=== PATIENT | female | born 1950 | race Caucasian/White ===

== ENCOUNTER → 2018-08-31 | Outpatient (CLI) | payer OTHER ==
[~2018-08-31] MED LIST: Bactrim PO; CALCIUM 500 +1 EAC5 PO; CELEXA 20 MG TA20 M1 PO; CENTRUM SILVER1 EAC1 PO; COD LIVER OIL1 EAC1 PO; CRANBERRY PO; FOSAMAX 35 MG35 M1 PO; HYDROXYZINE HCL25 M2 PO; N ACETYL CYSTEINE PO; NEXIUM40 MG PO; NIFEDICAL XL30 MG PO; NIFEREX PO; ONDANSETRON ODT4 MG PO; PREDNISONE PO; SEREVENT DISKU50 MCG IH; VITAMIN D 5050000 I1 PO; VITAMIN E 400I400 I1 PO; [UNRECOGNIZED DRUG - OTHER] PO; [UNRECOGNIZED DRUG - OTHER] SQ
== END ==
LOC: RAD 01:13
DX: Z12.31 Encounter for screening mammogram for malignant neoplasm of breast (principal)

== ENCOUNTER → 2019-09-14 | Outpatient (CLI) | payer OTHER, BC | LOC: RAD 09:05 | DX: Z12.31 Encounter for screening mammogram for malignant neoplasm of breast (principal) ==

== ENCOUNTER → 2020-08-16 | Outpatient (CLI) | payer OTHER, BC | LOC: RAD 12:08 | PROVIDERS: ATTEND Internal Medicine | DX: J84.10 Pulmonary fibrosis, unspecified (principal); J84.9 Interstitial pulmonary disease, unspecified ==

== ENCOUNTER → 2020-09-20 | Outpatient (CLI) | payer OTHER, BC | LOC: LAB 09:40 | PROVIDERS: ATTEND Internal Medicine | DX: R05 Cough (principal); R06.02 Shortness of breath; Z20.828 Contact with and (suspected) exposure to other viral communicable diseases ==

== ENCOUNTER → 2020-10-30 | Outpatient (CLI) | payer OTHER, BC ==
[2020-10-30 17:10] LABS: ABSOLUTE NEUTROPHILS 9.3 thou/uL (1.4-8.2); BASOPHILS 0.4 % (0.0-2.0); HEMATOCRIT 37.8 % (37.0-47.0); LYMPHOCYTES 5.9 % (24.0-44.0); MCH 25.3 pg (26.0-34.0); MCHC 31.8 g/dL (28.0-37.0); MCV 79.6 fL (80.0-100.0); MONOCYTES 6.1 % (1.0-8.0); PLATELET COUNT 345 thou/uL (150-400); POLYS 86.6 % (36.0-66.0); RBC 4.75 mil/uL (4.20-5.00); WBC 10.7 thou/uL (4.0-11.0)
[2020-10-30 17:26] LABS: ALBUMIN 3.8 g/dL (3.4-5.0); CALCIUM 9.8 mg/dL (8.5-10.1); CREATININE 0.8 mg/dL (0.6-1.0); POTASSIUM 4.2 mmol/L (3.5-5.1); TOTAL BILIRUBIN 0.3 mg/dL (0.2-1.0); TOTAL PROTEIN 7.1 g/dL (6.4-8.2)
== END ==
LOC: CAT 16:04
PROVIDERS: ATTEND Internal Medicine
DX: J84.10 Pulmonary fibrosis, unspecified (principal); J84.9 Interstitial pulmonary disease, unspecified; M34.9 Systemic sclerosis, unspecified; K44.9 Diaphragmatic hernia without obstruction or gangrene

== ENCOUNTER → 2020-10-31 | Outpatient (CLI) | payer OTHER, BC ==
--- NOTE | 2020-10-31 14:55 | 2DMMODE ---
[facility] [place] [address] 2 D/M-MODE ECHOCARDIOGRAM Name: CAR REDDY Room #: REG LENIN Jakub.#: [id number] Admission: 10/31/20 Attend Phys: Edgar Herzog MD Discharge: Date of : 52 Report #: [id number] THIS REPORT FOR: cc: Karlo Matias MD, Mark S. MD Lammoglia, Francisco J. MD ~ APPROVED REPORT Study performed: 10/31/2020 13:11:18 EXAM: Comprehensive 2D, Doppler, and color-flow Echocardiogram Patient Location: Out-Patient Room #: 2 Status: routine BSA: 1.52 HR: 98 bpm BP: 132/64 mmHg Rhythm: NSR Other Information Study Quality: Good Indications Pulmonary Hypertension Hypertension/HDD Pulmonary fibrosis 2D Dimensions RVDd: 31.45 mm IVSd: 10.53 (7-11mm) LVOT Diam: 19.37 (18-24mm) LVDd: 36.16 mm PWd: 8.90 (7-11mm) LVDs: 21.74 (25-40mm) Aortic Root: 24.22 mm IVC: 16.00 mm Volumes Left Atrial Volume (Systole) Single Plane 4CH: 31.88 mL Single Plane 2CH: 53.07 mL LA ESV Index: 30.00 mL/m2 Aortic Valve AoV Peak Pradip.: 1.70 m/s AO Peak Gr.: 11.62 mmHg LVOT Max P.58 mmHg LVOT Max V: 1.28 m/s [facility] [address] [place] [address] 2 D/M-MODE ECHOCARDIOGRAM Name: CAR REDDY Room #: REG [facility]ak[facility]#: [id number] Admission: 10/31/20 Attend Phys: Edgar Herzog, Discharge: Date of : 52 Report #: [id number] MARIA FERNANDA Vmax: 2.22 cm2 Mitral Valve E/A Ratio: 1.2 MV Decel. Time: 170.94 ms MV E Max Pradip.: 0.72 m/s MV A Pradip.: 0.60 m/s MV PHT: 49.57 ms IVRT: 101.50 ms Pulmonary Valve PV Peak Pradip.: 1.54 m/s PV Peak Gr.: 9.47 mmHg Pulmonary Vein P Vein S: 1.22 m/s P Vein A: 0.50 m/s P Vein D: 0.78 m/s P Vein A Dur.: 138.4 msec P Vein S/D Ratio: 1.56 Tricuspid Valve TR Peak Pradip.: 4.52 m/s TR Peak Gr.: 81.60 mmHg PA Pressure: 87.00 mmHg Left Ventricle The left ventricle is normal size. There is normal LV segmental wall motion. There is normal left ventricular wall thickness. The left ventricular systolic function is normal. The left ventricular ejection fraction is within the normal range. LVEF is 55-60%. Grade II - pseudonormal filling dynamics. Right Ventricle The right ventricle is normal size. The right ventricular systolic function is normal. Atria Left atrium is at the upper limits of normal. Right atrium is dilated. Aortic Valve The aortic valve is normal in structure. No aortic regurgitation is present. There is no aortic valvular stenosis. There is normal aortic valve excursion. Mitral Valve The mitral valve is normal in structure. Trace mitral regurgitation. No evidence of mitral valve stenosis. [facility] [place] [address] 2 D/M-MODE ECHOCARDIOGRAM Name: CAR REDDY Room #: REG [facility]#: [id number] Admission: 10/31/20 Attend Phys: Edgar Herzog, Discharge: Date of : 52 Report #: [id number] Tricuspid Valve The tricuspid valve is normal in structure. There is mild to moderate tricuspid regurgitation. Estimated PAP 87 mmHg. There is severe pulmonary hypertension. Pulmonic Valve The pulmonary valve is normal in structure. There is no pulmonic valvular regurgitation. Great Vessels The aortic root is normal in size. IVC is normal in size and collapses >50% with inspiration. Pericardium There is no pericardial effusion. <Conclusion> The left ventricle is normal size. LVEF is 55-60%. Left atrium is at the upper limits of normal. Right atrium is dilated. The aortic valve is normal in structure. The mitral valve is normal in structure. Trace mitral regurgitation. The tricuspid valve is normal in structure. The pulmonary valve is normal in structure. There is no pericardial effusion. <ELECTRONICALLY SIGNED> By: Frank Cabrera MD 10/31/20 1454 [id number] Frank Cabrera MD /INF
== END ==
LOC: CV 12:54
PROVIDERS: ATTEND Internal Medicine
DX: I07.1 Rheumatic tricuspid insufficiency (principal); M34.9 Systemic sclerosis, unspecified; J84.9 Interstitial pulmonary disease, unspecified